=== PATIENT | male | born 1990 | race African-American/Black ===

== ENCOUNTER 2017-09-25 15:43 | Emergency (ER) | payer SELFPAY ==
[2017-09-25] MEDS: DIPHTH,PERTUSS(ACELL),TET TOX 0.5 ML DISP.SYRIN. VAX IM (17:56)
[2017-09-25] MEDS: HYDROmorphone 2 MG/ML VIAL IM (18:00)
== END 2017-09-25 18:42 | disposition home or self-care (01) ==
LOC: ER 15:43
DX: T25.221A Burn of second degree of right foot, initial encounter (principal); T31.0 Burns involving less than 10% of body surface; G40.909 Epilepsy, unspecified, not intractable, without status epilepticus; Z91.013 Allergy to seafood; W86.1XXA Exposure to industrial wiring, appliances and electrical machinery, initial encounter; Y93.89 Activity, other specified; Y92.89 Other specified places as the place of occurrence of the external cause; Y99.8 Other external cause status
CPT/HCPCS: 90471; 90715; 96372; 99284-25; J1170